=== PATIENT | female | born 1995 | race Caucasian/White ===

== ENCOUNTER 2022-12-20 17:11 | Inpatient (IN) | payer OTHER ==
[2022-12-20 18:29] VITALS: BMI 28.1
[2022-12-20] MEDS ORDERED: Senokot S 8.6-50 MG TAB PO PRN (20:04)
[2022-12-20] MEDS ORDERED: Ondansetron PF 4 MG/2 ML Vial IVP PRN (20:04)
[2022-12-20] MEDS ORDERED: Ondansetron ODT 4 MG TAB PO PRN (20:04)
[2022-12-20] MEDS ORDERED: Acetaminophen 325 MG TAB PO PRN (20:04)
[2022-12-20] MEDS ORDERED: Calcium Carbonate 500 MG ChewTAB PO PRN (20:04)
[2022-12-20] MEDS ORDERED: Piperacillin/Tazobactam 3.375 GM in Sodium Chloride 0.9% 100 ML IVPB SCH (21:45)
[2022-12-20] MEDS ORDERED: Clindamycin/D5W 900 MG in Premix Bag 1 BAG IVPB SCH (22:00)
[2022-12-20] MEDS: Famotidine 20 MG TAB PO SCH (23:46)
[2022-12-21] MEDS: Clindamycin/D5W 900 MG in Premix Bag 1 BAG IVPB SCH ×3 (00:46→16:06)
[2022-12-21] MEDS: Vancomycin 1.5 GRAM/300 ML BAG 1.5 GM in Premix Bag 1 BAG IVPB SCH ×2 (01:24→08:12)
[2022-12-21] MEDS ORDERED: Piperacillin/Tazobactam 3.375 GM in Sodium Chloride 0.9% 100 ML IVPB SCH (02:00)
[2022-12-21 04:12] LABS: #Eosinphils 0.2 10x3/uL (0.0-0.5); #Monocytes 0.8 10x3/uL (0.0-1.1); #Neutrophils 2.9 10x3/uL (1.5-8.4); %Basophils 0.5 % (0.0-2.0); %Eosinophils 3.6 % (0.0-6.0); %Lymphocytes 32.9 % (18.0-47.0); %Monocytes 13.5 % (0.0-10.0); %Neutrophils 49.2 % (40.0-75.0); Hemoglobin 10.2 g/dL (12.0-15.5); Mean Corpuscular HGB CONC 32.4 g/dL (32.0-36.0); Mean Corpuscular Volume 92.6 fl (81.6-98.3); Platelet Count 186 10x3/uL (150-450); RBC Distribution Width 12.9 % (11.5-14.5); White Blood Cell (WBC) Count 5.9 10x3/uL (3.5-10.5)
[2022-12-21] MEDS: Piperacillin/Tazobactam 3.375 GM in Sodium Chloride 0.9% 100 ML IVPB SCH ×3 (04:22→20:04)
[2022-12-21 04:24] LABS: Anion Gap 12 mmol/L (10-20); BUN (Urea Nitrogen) 11 mg/dL (7.0-18.7); Calc. Creatinine Clearance 154 mL/min (70-130); Calcium 8.6 mg/dL (7.8-10.44); Carbon Dioxide 25 mmol/L (22-29); Chloride 108 mmol/L (98-107); Estimated GFR 119; Glucose 84 mg/dL (70-105); Potassium 4.1 mmol/L (3.5-5.1); Sodium 141 mmol/L (136-145)
[2022-12-21] MEDS: Famotidine 20 MG TAB PO SCH ×2 (08:13→20:05)
[2022-12-21 15:55] LABS: Vancomycin, Trough 20.5 ug/mL
[2022-12-21] MEDS ORDERED: Loperamide HCl 2 MG CAP PO PRN (16:52)
[2022-12-21] MEDS ORDERED: Fluconazole 100 MG TAB PO SCH (17:30)
[2022-12-21] MEDS: Fluconazole 100 MG TAB PO SCH (17:33)
[2022-12-21] MEDS: Vancomycin HCl 1 GM in Sodium Chloride 0.9% 250 ML 250 ML IVPB SCH (18:24)
[2022-12-22] MEDS: Clindamycin/D5W 900 MG in Premix Bag 1 BAG IVPB SCH (00:25)
[2022-12-22] MEDS: Vancomycin HCl 1 GM in Sodium Chloride 0.9% 250 ML 250 ML IVPB SCH (02:40)
[2022-12-22] MEDS: Piperacillin/Tazobactam 3.375 GM in Sodium Chloride 0.9% 100 ML IVPB SCH (04:29)
[2022-12-22 06:40] LABS: #Eosinphils 0.3 10x3/uL (0.0-0.5); #Monocytes 0.6 10x3/uL (0.0-1.1); #Neutrophils 2.3 10x3/uL (1.5-8.4); %Basophils 0.6 % (0.0-2.0); %Eosinophils 5.6 % (0.0-6.0); %Lymphocytes 33.5 % (18.0-47.0); %Monocytes 11.4 % (0.0-10.0); %Neutrophils 47.7 % (40.0-75.0); Hemoglobin 10.7 g/dL (12.0-15.5); Mean Corpuscular HGB CONC 31.8 g/dL (32.0-36.0); Mean Corpuscular Hemoglobin 29.2 pg (27.0-33.0); Mean Corpuscular Volume 91.8 fl (81.6-98.3); Mean Platelet Volume 10.7 fl (7.4-10.4); Platelet Count 216 10x3/uL (150-450); RBC Distribution Width 12.7 % (11.5-14.5); Red Blood Cell (RBC) Count 3.67 10x6/uL (3.90-5.03); White Blood Cell (WBC) Count 4.8 10x3/uL (3.5-10.5)
[2022-12-22 07:09] LABS: Anion Gap 14 mmol/L (10-20); BUN (Urea Nitrogen) 10 mg/dL (7.0-18.7); Calc. Creatinine Clearance 163 mL/min (70-130); Calcium 8.6 mg/dL (7.8-10.44); Carbon Dioxide 22 mmol/L (22-29); Chloride 110 mmol/L (98-107); Estimated GFR 124; Glucose 109 mg/dL (70-105); Potassium 3.9 mmol/L (3.5-5.1); Sodium 142 mmol/L (136-145)
[2022-12-22] MEDS: Famotidine 20 MG TAB PO SCH ×2 (09:24→21:26)
[2022-12-22] MEDS: Fluconazole 100 MG TAB PO SCH (09:24)
[2022-12-22] MEDS: Clindamycin 150 MG CAP PO SCH ×2 (12:54→19:28)
[2022-12-22] MEDS ORDERED: Melatonin 3 MG TAB PO PRN (20:00)
[2022-12-22] MEDS ORDERED: diphenhydrAMINE 25 MG CAP PO PRN (20:06)
[2022-12-23] MEDS: Clindamycin 150 MG CAP PO SCH ×3 (00:55→12:45)
[2022-12-23] MEDS: Famotidine 20 MG TAB PO SCH (09:35)
[2022-12-23] MEDS: Fluconazole 100 MG TAB PO SCH (09:36)
[2022-12-23 11:48] VITALS: BP 120/58; TEMP 97.7
== END 2022-12-23 14:08 | DRG 759 ==
LOC: EEVIPCON 17:11 → CSHPP 17:11 → INTOOBSV 17:11 → OBSVTOIN 12-21 07:07
PROVIDERS: ADMIT Obstetrics & Gynecology; ATTEND Obstetrics & Gynecology
PROC: 0UCG7ZZ Extirpation of Matter from Vagina, Via Natural or Artificial Opening (ICD-10-PCS; principal; 2022-12-20)
DX: N76.0 Acute vaginitis (principal); T19.2XXA Foreign body in vulva and vagina, initial encounter; E28.2 Polycystic ovarian syndrome; F90.9 Attention-deficit hyperactivity disorder, unspecified type; F31.9 Bipolar disorder, unspecified; F20.9 Schizophrenia, unspecified; F41.9 Anxiety disorder, unspecified; F17.210 Nicotine dependence, cigarettes, uncomplicated; Z91.51 Personal history of suicidal behavior; Z79.899 Other long term (current) drug therapy; Z87.74 Personal history of (corrected) congenital malformations of heart and circulatory system; X83.8XXA Intentional self-harm by other specified means, initial encounter
CPT/HCPCS: 36415; 80048; 80202; 85025; 96374; 96376; G0378; J2543; J3370; J3490; J7050

== ENCOUNTER 2023-03-01 07:15 | Outpatient (CLI) | payer OTHER ==
[2023-03-01] MEDS ORDERED: Iopamidol 300 61% 100 ML VIAL FS ONE (10:10)
== END 2023-03-01 07:16 | disposition home or self-care (01) ==
LOC: CSHCT 07:15
PROVIDERS: ATTEND Nurse Practitioner Family
DX: T19.2XXA Foreign body in vulva and vagina, initial encounter (principal); N73.9 Female pelvic inflammatory disease, unspecified; J90 Pleural effusion, not elsewhere classified; N89.8 Other specified noninflammatory disorders of vagina
CPT/HCPCS: 74178; Q9967